=== PATIENT | female | born 1945 | race Caucasian/White ===

== ENCOUNTER → 2018-04-12 | Outpatient (CLI) | payer OTHER ==
[2018-04-12 12:32] LABS: PLATELET (PFA) 272 x10^3/uL (130-400)
== END | disposition home or self-care (01) ==
LOC: LAB 12:08
PROVIDERS: ATTEND Family Medicine
DX: I10 Essential (primary) hypertension (principal); E03.9 Hypothyroidism, unspecified; R23.3 Spontaneous ecchymoses
CPT/HCPCS: 36415; 85014; 85049; 85576

== ENCOUNTER 2019-02-04 21:44 | Inpatient (IN) | payer OTHER ==
[~2019-02-04] VITALS: Ht 160 cm; Wt 105.0 kg
[2019-02-04] MEDS ORDERED: ASPIRIN 81 MG TABLET CHEW ONE (22:19)
[2019-02-04] MEDS ORDERED: CALCIUM CARBONATE 500 MG TAB.CHEW ONE (22:19)
[2019-02-04 22:20] LABS: BASOPHILS # (AUTO) 0.03 x10^3/uL (0-0.1); BASOPHILS % (AUTO) 0 % (0-1); EOSINOPHILS # (AUTO) 0.09 x10^3/uL (0-0.4); EOSINOPHILS % (AUTO) 1 % (1-7); LYMPHOCYTES # (AUTO) 1.89 x10^3/uL (1-3.4); LYMPHOCYTES % (AUTO) 16 % (22-44); MD NO; MEAN CORPUSCULAR HEMOGLOBIN 30.3 pg (27.0-34.8); MEAN CORPUSCULAR HGB CONC 34.2 g/dL (32.4-35.8); MEAN CORPUSCULAR VOLUME 88.5 fL (80-100); MEAN PLATELET VOLUME 8.4 fL (7.4-10.4); MONOCYTES # (AUTO) 0.94 x10^3/uL (0.2-0.8); MONOCYTES % (AUTO) 8 % (2-9); NEUTROPHILS # (AUTO) 8.99 x10^3/uL (1.8-6.8); NEUTROPHILS % (AUTO) 75 % (42-75); PLATELET COUNT 271 x10^3/uL (130-400); RED BLOOD COUNT 4.98 x10^6/uL (3.82-5.3); RED CELL DISTRIBUTION WIDTH 14.3 % (9.6-15.2)
--- NOTE | 2019-02-04 22:23 | NUR ---
PT MEDICATED PER DEC. RESTING ON GURNEY, MONITORS APPLIED, SIDERAILS UP X2, CALL LIGHT WITHIN REACH
[2019-02-04] MEDS ORDERED: ASPIRIN 81 MG TABLET CHEW PO ONE (22:30)
[2019-02-04] MEDS ORDERED: CALCIUM CARBONATE 500 MG TAB.CHEW PO ONE (22:30)
[2019-02-04 22:33] LABS: ALANINE AMINOTRANSFERASE 25 U/L (12-78); ALBUMIN 3.5 g/dL (3.4-5.0); ANION GAP 6 mmol/L (5-15); CALCIUM 8.8 mg/dL (8.5-10.1); CHLORIDE 111 mmol/L (98-107); D-DIMER 0.55 ug/mlFEU (0.00-0.52); INTERNATIONAL NORMALIZED RATIO 0.96 (0.93-1.1); PROTHROMBIN TIME 10.1 Seconds (9.6-11.5)
[2019-02-04 22:38] LABS: ALKALINE PHOSPHATASE 103 U/L (45-117); CREATININE 1.03 mg/dL (0.55-1.02); TOTAL PROTEIN 6.7 g/dL (6.4-8.2); TROPONIN I < 0.015 ng/mL (0.000-0.045)
[2019-02-04] MEDS ORDERED: OMNIPAQUE 350 MG/ML, 100ML BOTTLE ONE (22:45)
--- NOTE | 2019-02-04 23:11 | NUR ---
PT UP TO RR WITH STEADY GAIT
--- NOTE | 2019-02-04 23:22 | NUR ---
PT TO CT
[2019-02-04 23:24] LABS: FREE T4 (FREE THYROXINE) 1.24 ng/dL (0.76-1.46); THYROID STIMULATING HORMONE 2.22 mIU/L (0.358-3.740)
[2019-02-05] MEDS ORDERED: LORazepam 2 MG/ML, 1ML ONE (00:27)
[2019-02-05] MEDS ORDERED: LORazepam 2 MG/ML, 1ML IVPush ONE (00:30)
--- NOTE | 2019-02-05 00:32 | NUR ---
PT RESTING ON [facility], MEDICATED PER DEC, MONITORS IN PLACE, CALL LIGHT WITHIN REACH.
--- NOTE | 2019-02-05 00:59 | NUR ---
lunch rn: report of pt from carlos Fitzpatrick. assuming care of pt at this time.
--- NOTE | 2019-02-05 01:37 | NUR ---
LUNCH RN: PT AMBULATES TO RESTROOM WITH STEADY GAIT.
[2019-02-05] MEDS ORDERED: TRIAMCINOLONE (01:58)
[2019-02-05] MEDS ORDERED: AMLO10TA8 PO (01:58)
[2019-02-05] MEDS ORDERED: LEVO125T PO (01:58)
[2019-02-05] MEDS ORDERED: LOSA1TAB22 PO (01:58)
--- NOTE | 2019-02-05 02:00 | NUR ---
pt resting calmly, monitors in place, call light within reach. admit md at pt's bedside
--- NOTE | 2019-02-05 02:16 | NUR ---
pt to ct
[2019-02-05] MEDS ORDERED: ONDANSETRON 2MG/ML, 2ML IVPush PRN (02:30)
[2019-02-05] MEDS ORDERED: LORazepam 0.5MG TABLET ONE (03:12)
[2019-02-05] MEDS: LORazepam 0.5MG TABLET PO PRN ×2 (03:14→14:23)
--- NOTE | 2019-02-05 03:16 | NUR ---
pt resting on gurney, medicated per dec, monitors in place, call light within reach. awaiting room for admit
--- NOTE | 2019-02-05 04:27 | NUR ---
pt up to rr with steady gait. pt resting on hospital bed, monitors in place, call light within reach, denies further needs at this time
--- NOTE | 2019-02-05 05:31 | NUR ---
pt resting with eyes closed, nadn, equal chest rise/fall observed, monitors in place, call light within reach.
[2019-02-05] MEDS: LEVOTHYROXINE 125 MCG TABLET PO SCH (06:01)
--- NOTE | 2019-02-05 06:35 | NUR ---
pt resting calmly, denies needs, monitors in place, call light within reach. awaiting room for admit
--- NOTE | 2019-02-05 06:58 | NUR ---
report given to carlos guthrie
--- NOTE | 2019-02-05 07:02 | NUR ---
Recieved bedside report from STEPHANIE Fitzpatrick. All questions answered. Assuming care of pt. Pt resting on hospital bed. NADN. Pt requesting to get up to restroom. Pt disconnected from monitors and ambulates by self with steady gait and balance to restroom with treaded socks on. No obvious defecits observed. No other needs requested at this time. Pt is AOX4, has unlabored breathing with even chest rise and fall, and skin is pink, warm, dry and intact.
[2019-02-05 07:11] LABS: CHOLESTEROL, TOTAL 165 mg/dL (140-239)
[2019-02-05 07:15] LABS: CHOL/HDL RATIO 2.3; HDL CHOL % 43 % (28-40); HDL CHOLESTEROL (DIRECT) 71 mg/dL (40-60); LDL CHOLESTEROL,CALCULATED 72 mg/dL (54-169); TRIGLYCERIDES 109 mg/dL (50-200); TROPONIN I < 0.015 ng/mL (0.000-0.045); VLDL CHOLESTEROL 22 mg/dL (0-25)
[2019-02-05] MEDS ORDERED: CALCIUM CARBONATE 500 MG TAB.CHEW ONE (07:31)
--- NOTE | 2019-02-05 07:36 | NUR ---
Pt requesting TUMS. Provided medication per EMAR. Pt appreciative. NADN. Pt resting on hospital bed connected to continous pulse ox and manager cardiac cath. Call light within reach. No other needs expressed at this time.
[2019-02-05] MEDS ORDERED: AMLODIPINE 5 MG TABLET ONE (07:50)
--- NOTE | 2019-02-05 07:54 | NUR ---
Yellow slip sent to pharmacy for 0900 medication requests.
--- NOTE | 2019-02-05 08:20 | NUR ---
Provided pt breakfast tray at bedside. Pt appreciative. Pt states, "I don't know if I will eat much but I will try." NADN. No other needs requested.
[2019-02-05] MEDS: HYDROCHLOROTHIAZIDE 25 MG TABLET PO SCH (08:28)
[2019-02-05] MEDS: AMLODIPINE 5 MG TABLET PO SCH (08:28)
[2019-02-05] MEDS: LOSARTAN 50MG TABLET PO SCH (08:29)
--- NOTE | 2019-02-05 08:31 | NUR ---
Pt sitting up on edge of hospital bed eating breakfast tray. Provided pt medications per EMAR. Pt appreciative. No other needs requested at this time. Pt educated on IS use with verbal and visual demonstration. Pt able to teach back use of IS. Pt states verbal understanding. NADN. Call light within reach.
[2019-02-05] MEDS ORDERED: CALCIUM CARBONATE 500 MG TAB.CHEW PO ONE (09:00)
--- NOTE | 2019-02-05 10:36 | NUR ---
Orthostatic vital signs obtained. Pt completed with out c/o dizziness or lightheadedness. Pt states, "it just feels like a pressure in my head." NADN. No needs expressed. Pt back to bed with spouse at bedside.
--- NOTE | 2019-02-05 12:02 | NUR ---
Provided report to STEPHANIE Todd. All questions answered. Pt ready to transfer to floor from ED.
--- NOTE | 2019-02-05 12:05 | NUR ---
LATE NOTE ENTRY FOR 1130: Provided pt knee high anti-embolism stockings. Applied for pt. NADN. No needs expressed. Provided treaded socks for pt as well.
--- NOTE | 2019-02-05 12:56 | NUR ---
Pt discharged from ED and transfered to floor and left with all personal belongings.
[2019-02-05 19:24] VITALS: BP 116/78
[2019-02-05 22:11] LABS: MICROSCOPIC NOT IND
[2019-02-05 22:17] LABS: CULTURE INDICATED? NO
[2019-02-05 22:22] LABS: AMPHETAMINE SCREEN, URINE Negative (Negative); BARBITURATE SCREEN, URINE Negative (Negative); BENZODIAZEPINE SCREEN, URINE Negative (Negative); CANNABINOID SCREEN, URINE Negative (Negative); COCAINE SCREEN, URINE Negative (Negative); METHADONE SCREEN, URINE Negative (Negative); OPIATE SCREEN, URINE Negative (Negative)
[2019-02-06 00:54] VITALS: BP 104/66
[2019-02-06 05:15] LABS: ANION GAP 6 mmol/L (5-15); CALCIUM 9.3 mg/dL (8.5-10.1); CHLORIDE 109 mmol/L (98-107)
[2019-02-06 05:17] LABS: BASOPHILS # (AUTO) 0.05 x10^3/uL (0-0.1); BASOPHILS % (AUTO) 1 % (0-1); EOSINOPHILS # (AUTO) 0.39 x10^3/uL (0-0.4); EOSINOPHILS % (AUTO) 5 % (1-7); LYMPHOCYTES # (AUTO) 1.98 x10^3/uL (1-3.4); LYMPHOCYTES % (AUTO) 24 % (22-44); MD NO; MEAN CORPUSCULAR HEMOGLOBIN 29.9 pg (27.0-34.8); MEAN CORPUSCULAR HGB CONC 33.7 g/dL (32.4-35.8); MEAN CORPUSCULAR VOLUME 88.8 fL (80-100); MEAN PLATELET VOLUME 8.8 fL (7.4-10.4); MONOCYTES # (AUTO) 0.82 x10^3/uL (0.2-0.8); MONOCYTES % (AUTO) 10 % (2-9); NEUTROPHILS # (AUTO) 4.96 x10^3/uL (1.8-6.8); NEUTROPHILS % (AUTO) 61 % (42-75); PLATELET COUNT 227 x10^3/uL (130-400); RED BLOOD COUNT 4.63 x10^6/uL (3.82-5.3); RED CELL DISTRIBUTION WIDTH 14.4 % (9.6-15.2)
[2019-02-06 05:28] LABS: CREATININE 0.81 mg/dL (0.55-1.02)
[2019-02-06] MEDS: LEVOTHYROXINE 125 MCG TABLET PO SCH (06:05)
[2019-02-06 07:45] VITALS: BP 134/82
[2019-02-06] MEDS: AMLODIPINE 5 MG TABLET PO SCH (07:46)
[2019-02-06] MEDS: HYDROCHLOROTHIAZIDE 25 MG TABLET PO SCH (07:46)
[2019-02-06] MEDS: LOSARTAN 50MG TABLET PO SCH (07:46)
[2019-02-06] MEDS: LORazepam 0.5MG TABLET PO PRN (07:46)
[2019-02-06] MEDS ORDERED: MAALOX/HYOSCYAMINE/LIDOCAINE 45 ML BTL PO ONE (08:00)
[2019-02-06] MEDS ORDERED: PANTOPRAZOLE 40 MG IV IVPush SCH ×2 (08:00)
[2019-02-06 08:02] LABS: TROPONIN I < 0.015 ng/mL (0.000-0.045)
[2019-02-06] MEDS ORDERED: REGADENOSON 0.4 MG/5 ML SYRINGE ONE (08:26)
[2019-02-06] MEDS ORDERED: POTASSIUM CHLORIDE 20 MEQ TAB.ER.PRT PO ONE ×2 (08:30→11:30)
[2019-02-06] MEDS ORDERED: CALCIUM CARBONATE 500 MG TAB.CHEW PO SCH (09:00)
[2019-02-06 12:53] VITALS: BP 142/82
[2019-02-06] MEDS ORDERED: ATOR20TA37 PO (13:28)
[2019-02-06] MEDS ORDERED: SUCR1TAB33 PO (13:28)
[2019-02-06] MEDS ORDERED: PANT40TA5 PO (13:28)
== END 2019-02-06 14:06 | disposition home or self-care (01) | DRG 74 ==
LOC: ED 02-05 01:17 → EDIP 02-05 01:18 → 5SO 02-05 12:17
PROVIDERS: ADMIT Internal Medicine; ATTEND Internal Medicine
DX: G90.9 Disorder of the autonomic nervous system, unspecified (principal); K21.9 Gastro-esophageal reflux disease without esophagitis; K44.9 Diaphragmatic hernia without obstruction or gangrene; I10 Essential (primary) hypertension; E03.9 Hypothyroidism, unspecified; Z87.891 Personal history of nicotine dependence; Z90.710 Acquired absence of both cervix and uterus; Z79.899 Other long term (current) drug therapy; Z79.890 Hormone replacement therapy
CPT/HCPCS: 0399T; 36415; 70450; 71275; 78452; 80048; 80053; 80061; 80307; 81003; 83690; 83880; 84145; 84439; 84443; 84484; 85025; 85379; 85610; 85730; 93005; 93017; 93306; 93880; 96374; G0378; J2785; Q9967; A9502; C9113; C9898; J2060

== ENCOUNTER 2019-04-07 20:13 | Observation (INO) | payer OTHER ==
[~2019-04-07] VITALS: Ht 160 cm; Wt 108.0 kg
[~2019-04-07 20:13] MED LIST: AMLO10TA8 PO; ATOR20TA37 PO; LEVO125T PO; LOSA1TAB22 PO; PANT40TA5 PO; SUCR1TAB33 PO; TRIAMCINOLONE
[2019-04-07] MEDS ORDERED: MAALOX/HYOSCYAMINE/LIDOCAINE 45 ML BTL PO ONE (20:30)
[2019-04-07 20:53] LABS: BASOPHILS # (AUTO) 0.02 x10^3/uL (0-0.1); BASOPHILS % (AUTO) 0 % (0-1); EOSINOPHILS # (AUTO) 0.11 x10^3/uL (0-0.4); EOSINOPHILS % (AUTO) 1 % (1-7); LYMPHOCYTES # (AUTO) 1.91 x10^3/uL (1-3.4); LYMPHOCYTES % (AUTO) 16 % (22-44); MD NO; MEAN CORPUSCULAR HEMOGLOBIN 30.5 pg (27.0-34.8); MEAN CORPUSCULAR HGB CONC 33.7 g/dL (32.4-35.8); MEAN CORPUSCULAR VOLUME 90.3 fL (80-100); MEAN PLATELET VOLUME 8.3 fL (7.4-10.4); MONOCYTES # (AUTO) 0.88 x10^3/uL (0.2-0.8); MONOCYTES % (AUTO) 8 % (2-9); NEUTROPHILS # (AUTO) 8.86 x10^3/uL (1.8-6.8); NEUTROPHILS % (AUTO) 75 % (42-75); PLATELET COUNT 260 x10^3/uL (130-400); RED CELL DISTRIBUTION WIDTH 13.9 % (9.6-15.2)
[2019-04-07] MEDS ORDERED: MAALOX/HYOSCYAMINE/LIDOCAINE 45 ML BTL ONE (21:02)
[2019-04-07 21:04] LABS: ANION GAP 6 mmol/L (5-15); CALCIUM 9.1 mg/dL (8.5-10.1); CHLORIDE 102 mmol/L (98-107)
[2019-04-07 21:10] LABS: ALANINE AMINOTRANSFERASE 60 U/L (12-78); ALKALINE PHOSPHATASE 112 U/L (45-117); BILIRUBIN,TOTAL 1.2 mg/dL (0.2-1.0); CREATININE 1.02 mg/dL (0.55-1.02); TOTAL PROTEIN 7.6 g/dL (6.4-8.2); TROPONIN I < 0.015 ng/mL (0.000-0.045)
--- NOTE | 2019-04-07 21:22 | NUR ---
PT HERE FOR EPIGASTRIC PAIN THAT STARTED AT 1500. PT SEEN ERE FOR SAME IN FEBRUARY. VSS. PT MEDICATED WITH GI COCKTAIL. CALL LIGHT IN REACH
[2019-04-07] MEDS ORDERED: LORazepam 2 MG/ML, 1ML IVPush ONE (21:30)
[2019-04-07] MEDS ORDERED: LORazepam 2 MG/ML, 1ML ONE (21:32)
--- NOTE | 2019-04-07 22:53 | NUR ---
PT UP TO BATHROOM. VSS. PT AMBULATES WITH A STEADY GAIT.
[2019-04-07 23:29] VITALS: BP 125/80
[2019-04-07 23:30] VITALS: BP 127/83
[2019-04-07] MEDS ORDERED: BISACODYL 10 MG SUPP PR PRN (23:30)
[2019-04-07] MEDS ORDERED: POLYETHYLENE GLYCOL 17 GM PACKET PO PRN (23:30)
[2019-04-07] MEDS ORDERED: ONDANSETRON ODT 4 MG PO PRN (23:30)
[2019-04-07] MEDS ORDERED: NITROGLYCERIN 0.4 MG BOTTLE (25 TABS) SL PRN (23:30)
[2019-04-07] MEDS ORDERED: SODIUM CHLORIDE FLUSH 10ML SYR IVF SCH (23:30)
[2019-04-08] MEDS: SIMETHICONE 125 MG CHEW TAB PO SCH ×2 (00:32→09:01)
[2019-04-08 02:43] VITALS: BP 109/69
[2019-04-08 03:23] LABS: TROPONIN I < 0.015 ng/mL (0.000-0.045)
[2019-04-08] MEDS: ASPIRIN 81 MG TABLET EC PO SCH ×2 (06:00→09:03)
[2019-04-08] MEDS: LEVOTHYROXINE 125 MCG TABLET PO SCH ×2 (06:00→09:02)
[2019-04-08 07:20] VITALS: BP 123/67
[2019-04-08] MEDS ORDERED: SENNA/DOCUSATE TABLET PO SCH (09:00)
[2019-04-08] MEDS ORDERED: HYDROCHLOROTHIAZIDE 25 MG TABLET PO SCH (09:00)
[2019-04-08] MEDS ORDERED: LOSARTAN 50MG TABLET PO SCH (09:00)
[2019-04-08] MEDS ORDERED: AMLODIPINE 5 MG TABLET PO SCH (09:00)
[2019-04-08 09:39] LABS: TROPONIN I < 0.015 ng/mL (0.000-0.045)
== END 2019-04-08 11:02 | disposition home or self-care (01) ==
LOC: ED 21:54 → INTOOBSV 22:41 → EDIP 22:41 → 5SO 23:21 → DCLOUNGE 04-08 10:44
PROVIDERS: ADMIT Internal Medicine; ATTEND Internal Medicine
DX: R07.89 Other chest pain (principal); K44.9 Diaphragmatic hernia without obstruction or gangrene; E03.9 Hypothyroidism, unspecified; I10 Essential (primary) hypertension; E66.01 Morbid (severe) obesity due to excess calories; Z85.42 Personal history of malignant neoplasm of other parts of uterus; Z68.41 Body mass index [BMI] 40.0-44.9, adult; Z90.710 Acquired absence of both cervix and uterus; Z88.1 Allergy status to other antibiotic agents; Z79.899 Other long term (current) drug therapy; Z90.722 Acquired absence of ovaries, bilateral; Z90.79 Acquired absence of other genital organ(s); Z88.6 Allergy status to analgesic agent; Z88.8 Allergy status to other drugs, medicaments and biological substances
CPT/HCPCS: 36415; 71045; 76700; 80053; 83690; 84484; 85025; 93005; 96374; 99285; G0378; J2060